=== PATIENT | male | born 1940 | race African-American/Black ===

== ENCOUNTER 2021-07-18 10:24 | Inpatient (IN) | payer MEDICARE, MEDICAID ==
[~2021-07-18] VITALS: Ht 170.2 cm; Wt 47.2 kg
[2021-07-18] MEDS ORDERED: MORPHINE SULFATE 4 MG/ML CPJ (NOT FOR IM USE) IV STA (11:10)
[2021-07-18] MEDS ORDERED: ONDANSETRON HCL 4MG/2ML INJ IV STA (11:10)
[2021-07-18] MEDS ORDERED: SODIUM CHLORIDE 0.9% 1,000 ML IV ONE (11:15)
[2021-07-18 12:25] LABS: BASOPHILS % 0.9 % (0.0-2.0); EOSINOPHILS % 3.5 % (0.0-5.0); HEMATOCRIT. 28.4 % (42.0-52.0); HEMOGLOBIN. 9.5 g/dL (14.0-18.0); LYMPHOCYTES % 26.4 % (20.0-50.0); MEAN CORPUSCULAR HEMOGLOBIN 32.5 pg (28.0-32.0); MEAN CORPUSCULAR VOLUME 96.9 fL (80.0-94.0); MEAN PLATELET VOLUME 7.8 fl (7.4-10.4); MONOCYTES % 7.1 % (2.0-8.0); NEUTROPHILS % 62.1 % (40.0-76.0); PLATELET 212 x1000/uL (130-400); RED BLOOD CELL COUNT 2.94 mill/uL (4.7-6.1); RED CELL DISTRIBUTION WIDTH 15.3 % (11.6-14.6)
[2021-07-18 12:31] LABS: CHLORIDE 105 mEq/L (98-107)
[2021-07-18 12:35] LABS: INR 0.9; PARTIAL THROMBOPLASTIN TIME 23.7 sec (23.4-31.0)
[2021-07-18 12:53] LABS: CLARITY URINE CLEAR (CLEAR); COLOR URINE YELLOW (YELLOW); KETONES URINE NEGATIVE (NEGATIVE); LEUKOCYTE ESTERASE URINE NEGATIVE (NEGATIVE); NITRITE URINE NEGATIVE (NEGATIVE); OCCULT BLOOD URINE NEGATIVE (NEGATIVE); PH URINE 8.5 (4.5-8.0); PROTEIN URINE NEGATIVE (NEGATIVE); SPECIFIC GRAVITY URINE 1.005 (1.005-1.030); UROBILINOGEN URINE 0.2 E.U./dL (0.2-1.0)
[2021-07-18] MEDS ORDERED: MORPHINE SULFATE 2 MG/ML CPJ (NOT FOR IM USE) IV STA (13:21)
[2021-07-18] MEDS ORDERED: ONDANSETRON HCL 4MG/2ML INJ IV PRN (14:15)
[2021-07-18] MEDS ORDERED: LACTULOSE 20G/30ML UDC PO NR (14:15)
[2021-07-18] MEDS ORDERED: ACETAMINOPHEN 325MG TABLET PO PRN (14:15)
[2021-07-18] MEDS: DOCUSATE SODIUM 100MG CAPSULE PO SCH (17:37)
[2021-07-18 22:00] VITALS: BP 146/82
[2021-07-19] MEDS ORDERED: FOLI-43 MT (02:15)
[2021-07-19] MEDS ORDERED: LORA10TA7 MT (02:15)
[2021-07-19] MEDS ORDERED: LIP40 MT (02:15)
[2021-07-19] MEDS ORDERED: TRIA100A TP (02:15)
[2021-07-19] MEDS ORDERED: OMEP40CA20 MT (02:15)
[2021-07-19] MEDS ORDERED: FLUT9.9S BOTHNSTRLS (02:15)
[2021-07-19] MEDS ORDERED: AMLO10TA4 PO (02:15)
[2021-07-19 08:00] VITALS: BP 128/75
[2021-07-19] MEDS ORDERED: TRIAMCINOLONE ACETONIDE TP SCH (09:00)
[2021-07-19] MEDS ORDERED: MEDICATION NOT ON FORMULARY EA (Fluticasone Propionate (Flonase Allergy Relief) 2 SPR) BOTHNSTRLS SCH (09:00)
[2021-07-19] MEDS ORDERED: MEDICATION NOT ON FORMULARY EA (Omeprazole 1 CAP) MT SCH (09:00)
[2021-07-19] MEDS: OMEPRAZOLE 20MG CAPSULE EXTENDED RELEASE PO SCH (09:47)
[2021-07-19] MEDS: DOCUSATE SODIUM 100MG CAPSULE PO SCH ×2 (09:48→16:41)
[2021-07-19] MEDS: ATORVASTATIN CALCIUM 40MG TABLET PO SCH (09:48)
[2021-07-19] MEDS: FLUTICASONE PROPIONATE 50MCG/SPRAY BOTTLE BOTHNSTRLS SCH (09:48)
[2021-07-19] MEDS: FOLIC ACID 1MG TABLET PO SCH (09:48)
[2021-07-19] MEDS: AMLODIPINE 10MG TABLET PO SCH (09:48)
[2021-07-19] MEDS: TRIAMCINOLONE ACETONIDE 0.1% CREAM 15GM TOP SCH ×2 (09:49→16:41)
[2021-07-19 12:00] VITALS: BP 124/60
[2021-07-19 16:00] VITALS: BP 105/60
[2021-07-19 20:00] VITALS: BP 101/58
[2021-07-20] VITALS: BP 123/75
[2021-07-20 04:00] VITALS: BP 126/86
[2021-07-20] MEDS: OMEPRAZOLE 20MG CAPSULE EXTENDED RELEASE PO SCH (06:49)
[2021-07-20 08:00] VITALS: BP 110/62
[2021-07-20] MEDS: AMLODIPINE 10MG TABLET PO SCH (09:00)
[2021-07-20] MEDS: ATORVASTATIN CALCIUM 40MG TABLET PO SCH (09:28)
[2021-07-20] MEDS: DOCUSATE SODIUM 100MG CAPSULE PO SCH ×2 (09:28→19:34)
[2021-07-20] MEDS: FLUTICASONE PROPIONATE 50MCG/SPRAY BOTTLE BOTHNSTRLS SCH (09:28)
[2021-07-20] MEDS: TRIAMCINOLONE ACETONIDE 0.1% CREAM 15GM TOP SCH ×2 (09:28→19:34)
[2021-07-20] MEDS: FOLIC ACID 1MG TABLET PO SCH (09:29)
[2021-07-20 12:00] VITALS: BP 100/60
[2021-07-20 16:00] VITALS: BP 100/53
[2021-07-20 16:48] LABS: BASOPHILS % 0.8 % (0.0-2.0); EOSINOPHILS % 2.6 % (0.0-5.0); HEMATOCRIT. 25.9 % (42.0-52.0); HEMOGLOBIN. 8.6 g/dL (14.0-18.0); MEAN CORPUSCULAR HEMOGLOBIN 32.5 pg (28.0-32.0); MEAN CORPUSCULAR VOLUME 98.2 fL (80.0-94.0); MEAN PLATELET VOLUME 8.2 fl (7.4-10.4); MONOCYTES % 6.4 % (2.0-8.0); NEUTROPHILS % 69.2 % (40.0-76.0); PLATELET 195 x1000/uL (130-400); RED BLOOD CELL COUNT 2.64 mill/uL (4.7-6.1); RED CELL DISTRIBUTION WIDTH 14.9 % (11.6-14.6)
[2021-07-20 17:04] LABS: CHLORIDE 110 mEq/L (98-107)
[2021-07-20 20:00] VITALS: BP 118/85
[2021-07-21] VITALS: BP 131/70
[2021-07-21 04:00] VITALS: BP 157/79
[2021-07-21] MEDS ORDERED: FAMOTIDINE 20MG TABLET PO SCH (07:10)
[2021-07-21 08:00] VITALS: BP 123/66
[2021-07-21] MEDS: FLUTICASONE PROPIONATE 50MCG/SPRAY BOTTLE BOTHNSTRLS SCH (08:41)
[2021-07-21] MEDS: FOLIC ACID 1MG TABLET PO SCH (08:41)
[2021-07-21] MEDS: TRIAMCINOLONE ACETONIDE 0.1% CREAM 15GM TOP SCH (08:41)
[2021-07-21] MEDS: ATORVASTATIN CALCIUM 40MG TABLET PO SCH (08:42)
[2021-07-21] MEDS: DOCUSATE SODIUM 100MG CAPSULE PO SCH (08:42)
[2021-07-21] MEDS: AMLODIPINE 10MG TABLET PO SCH (08:42)
[2021-07-21 12:00] VITALS: BP 100/52
[2021-07-21 12:52] VITALS: BP 100/52
== END 2021-07-21 16:15 | DRG 811 ==
LOC: ER 10:24 → 8WST 13:21 → EDBEDREQSVC 15:04 → ENRESERV 20:52
PROVIDERS: ADMIT Internal Medicine; ATTEND Internal Medicine
DX: D64.9 Anemia, unspecified (principal); G93.41 Metabolic encephalopathy; E44.0 Moderate protein-calorie malnutrition; Z68.1 Body mass index [BMI] 19.9 or less, adult; R62.7 Adult failure to thrive; E11.9 Type 2 diabetes mellitus without complications; E78.5 Hyperlipidemia, unspecified; I10 Essential (primary) hypertension; K21.9 Gastro-esophageal reflux disease without esophagitis; K59.00 Constipation, unspecified; K82.8 Other specified diseases of gallbladder; Z20.822 Contact with and (suspected) exposure to COVID-19; I25.10 Atherosclerotic heart disease of native coronary artery without angina pectoris; M54.9 Dorsalgia, unspecified; J44.9 Chronic obstructive pulmonary disease, unspecified; Z85.46 Personal history of malignant neoplasm of prostate
CPT/HCPCS: 36415; 71045; 74176; 76705; 80048; 80053; 81003; 83880; 84484; 85025; 87426; 93005; 97162; 99285; J2270; J2405; J7030; J7040